=== PATIENT | male | born 1980 | race Caucasian/White ===

== ENCOUNTER 2016-07-18 09:57 | Emergency (ER) | payer SELFPAY ==
[~2016-07-18] VITALS: Ht 170.2 cm; Wt 102.5 kg
[~2016-07-18 09:57] MED LIST: ACET500T98; DOCU-144 PO; HYDR25SU24 PR
[2016-07-18 10:09] VITALS: Ht 170.2 cm; Wt 102.5 kg
[2016-07-18] MEDS ORDERED: KETOROLAC 30 MG INJ IV STA (11:21)
[2016-07-18] MEDS ORDERED: DIPHENHYDRAMINE 50 MG INJ IV STA (11:21)
[2016-07-18] MEDS ORDERED: PROCHLORPERAZINE 10 MG INJ IV STA (11:21)
[2016-07-18] MEDS ORDERED: SOD CHLORIDE 0.9% 1,000 ML IV STA (11:21)
[2016-07-18] MEDS ORDERED: ASPI1TAB30 PO (12:09)
--- NOTE | 2016-07-18 12:17 | ERD ---
ER Documentation Chief Complaint Date/Time DATE: 07/18/16 TIME: 12:14 Chief Complaint ANAND AND RIGHT EYE PAIN X 1.5 WKS HPI Patient is a 35-year-old male who presents with right-sided headache behind his eye that he has had for over 1-1/2 weeks. Denies any trauma. Admits to mild blurry vision occasionally in the eye. He thinks it may be stress related as he recently lost a family member about 2 weeks ago. Denies any nausea or vomiting. He does state he has photosensitivity. He does not wear any glasses or contacts. He denies any dizziness. Denies trauma. Has not taken any medications for pain. ROS All systems reviewed and are negative except as per history of present illness. Medications Home Meds Active Scripts Aspirin/Acetaminophen/Caffeine (Excedrin Migraine Caplet) 1 Each Tablet, 1 EACH PO Q6, #30 TAB Prov:KATHRYN RODRIGUEZ PA-C 07/18/16 Docusate Sodium* (Colace*) 100 Mg Capsule, 100 MG PO BID, #60 Prov:ALONA WEST NP 02/21/15 Hydrocortisone Acetate* (Anusol-HC*) 25 Mg/Supp.rect Supp.rect, 1 SUPP OK HS, # 24 SUPP.RECT Prov:ALONA WEST NP 02/21/15 Reported Medications Acetaminophen (Tylenol) 500 Mg Tab 05/17/10 Allergies Allergies: Coded Allergies: No Known Drug Allergies (Verified Allergy, Mild, 02/21/15) PMhx/Soc Medical and Surgical Hx: pt denies Medical Hx, pt denies Surgical Hx History of Surgery: No Anesthesia Reaction: No Hx Neurological Disorder: No Hx Respiratory Disorders: No Hx Cardiac Disorders: No Hx Psychiatric Problems: No Hx Miscellaneous Medical Probl: No Hx Alcohol Use: No Hx Substance Use: No Hx Tobacco Use: No FmHx Family History: No diabetes Physical Exam Vitals Vital Signs Date Time Temp Pulse Resp B/P Pulse Ox O2 Delivery O2 Flow Rate FiO2 07/18/16 10:09 97.9 88 20 155/96 98 Physical Exam General: well developed, well nourished, alert, nontoxic, no distress Head: normocephalic, atraumatic Eyes: PERRL, normal conjunctiva Neck: Supple, nontender, no lymphadenopathy, no midline tenderness Respiratory: Clear to auscaultation bilaterally, speaks in full sentences, no use of accesory muscles or labored breathing, no rales, ronchi, or wheezing Cardiovascular: RRR, No murmurs GI: soft, non tender, non distended, negative murphys sign, negative mcburneys point tenderness, no cva tenderness bilaterally, no rebound or guarding Back: no midline tenderness, no step offs or bony abnormalities, sensation to light touch in tact Extremities: moving all extremities normally, normal gait, no edema Skin: no visible rashes Neuro: CN 2-12 intact, normal speech, pearl maker strength 5/5 bilaterally, rapid alternating movements wnl, romberg and pronator drift wnl Results 24 hrs Current Medications Medications (Trade) Dose Ordered Sig/Sesar Route PRN Reason Start Time Stop Time Status Last Admin Dose Admin Sodium Chloride (NS) 1,000 ml @ 1,000 mls/hr Q1H STAT IV 07/18/16 11:21 07/18/16 12:20 07/18/16 11:54 Prochlorperazine (Compazine Inj) 10 mg ONCE STAT IV 07/18/16 11:21 07/18/16 11:23 DC 07/18/16 11:54 Ketorolac Tromethamine (Toradol) 30 mg ONCE STAT IV 07/18/16 11:21 07/18/16 11:23 DC 07/18/16 11:55 Diphenhydramine HCl (Benadryl) 12.5 mg ONCE STAT IV 07/18/16 11:21 07/18/16 11:23 DC 07/18/16 11:55 Procedures/MDM Patient presents with headache. He is well-appearing in no distress. Mildly elevated blood pressure 155/96 otherwise vital signs are normal. Neurological examination is normal. He was given IV fluids and pain medication. He had improvement of his symptoms. He originally accepted CT scan but that he decided not to get CT scan and therefore he was discharged. He understands risks of not getting CT scan. Recommended this patient follow up with her primary care doctor within 48 hours or return to the emergency room for any worsening of symptoms. However this time I do believe there is suitable for outpatient management. I answered all their questions and they agreed with the plan and were discharged home. Departure Diagnosis: Primary Impression: Headache Condition: Stable Patient Instructions: Self-Care for Headaches Additional Instructions: Llame al doctor MAANA y juana bebeto NICHOLAS PARA DENTRO DE 1-2 DOLAN.Dgale a la secretaria que nosotros le instruimos hacer esta nicholas.Avise o llame si ontiveros condicin se empeora antes de la nicholas. Regresa aqui si peor o no mejor. KATHRYN RODRIGUEZ PA-C Jul 18, 2016 12:17
== END 2016-07-18 13:07 | disposition home or self-care (01) ==
LOC: FTE 09:57
DX: R51 Headache (principal)
CPT/HCPCS: J0780; J1200; J1885; J7030; 96374; 96375

== ENCOUNTER 2018-06-16 15:21 | Emergency (ER) | payer MEDICAID, OTHER ==
[~2018-06-16] VITALS: Wt 118.1 kg
[~2018-06-16 15:21] MED LIST changes: +ASPI1TAB31 PO
[2018-06-16] MEDS ORDERED: ASPIRIN 325 MG TAB PO ONE (16:00)
[2018-06-16] MEDS ORDERED: ASPIRIN 81 MG TAB PO ONE (16:00)
--- NOTE | 2018-06-16 16:43 | ERD ---
ER Documentation Chief Complaint Chief Complaint SUDDEN ONSET L SIDE NUMBNESS AT 1300, AND APHASIA PER PT. ANAND WELL ROS All systems reviewed and are negative except as per history of present illness. Medications Home Meds Discontinued Reported Medications Acetaminophen (Tylenol) 500 Mg Tab 05/17/10 Discontinued Scripts Aspirin/Acetaminophen/Caffeine (Excedrin Migraine Caplet) 1 Each Tablet, 1 EACH PO Q6, #30 TAB Prov:KATHRYN RODRIGUEZ PA-C 07/18/16 Docusate Sodium* (Colace*) 100 Mg Capsule, 100 MG PO BID, #60 Prov:ALONA WEST NP 02/21/15 Hydrocortisone Acetate* (Anusol-HC*) 25 Mg/Supp.rect Supp.rect, 1 SUPP [place] HS, #24 SUPP.RECT Prov:ALONA WEST NP 02/21/15 Allergies Allergies: Coded Allergies: No Known Drug Allergies (Verified Allergy, Mild, 06/16/18) PMhx/Soc Medical and Surgical Hx: pt denies Medical Hx, pt denies Surgical Hx History of Surgery: No Anesthesia Reaction: No Hx Neurological Disorder: No Hx Respiratory Disorders: No Hx Cardiac Disorders: No Hx Psychiatric Problems: No Hx Miscellaneous Medical Probl: No Hx Alcohol Use: No Hx Substance Use: No Hx Tobacco Use: No Smoking Status: Never smoker Physical Exam Vitals Vital Signs Date Temp Pulse Resp B/P (MAP) Pulse Ox O2 O2 Flow FiO2 Time Delivery Rate 06/16/18 98.6 98 18 139/85 99 15:25 (103) Physical Exam Const: No acute distress Head: Atraumatic Eyes: Normal Conjunctiva ENT: Normal External Ears, Nose and Mouth. Neck: Full range of motion. No meningismus. Resp: Clear to auscultation bilaterally Cardio: Regular rate and rhythm, no murmurs Abd: Soft, non tender, non distended. Normal bowel sounds Skin: No petechiae or rashes Back: No midline or flank tenderness Ext: No cyanosis, or edema Neur: Awake and alert Psych: Normal Mood and Affect Result Diagram: 06/16/18 1530 06/16/18 1530 Results 24 hrs Laboratory Tests Test 06/16/18 15:30 06/16/18 15:47 White Blood Count 10.0 10^3/ul Red Blood Count 5.46 10^6/ul Hemoglobin 16.7 g/dl Hematocrit 49.4 % Mean Corpuscular Volume 90.5 fl Mean Corpuscular Hemoglobin 30.6 pg Mean Corpuscular Hemoglobin Concent 33.8 g/dl Red Cell Distribution Width 11.9 % Platelet Count 258 10^3/UL Mean Platelet Volume 10.2 fl Immature Granulocytes % 0.700 % Neutrophils % 54.2 % Lymphocytes % 35.3 % Monocytes % 7.9 % Eosinophils % 1.4 % Basophils % 0.5 % Nucleated Red Blood Cells % 0.0 /100WBC Immature Granulocytes # 0.070 10^3/ul Neutrophils # 5.4 10^3/ul Lymphocytes # 3.5 10^3/ul Monocytes # 0.8 10^3/ul Eosinophils # 0.1 10^3/ul Basophils # 0.1 10^3/ul Nucleated Red Blood Cells # 0.0 10^3/ul Prothrombin Time 11.9 Sec Prothrombin Time Ratio 0.9 INR International Normalized Ratio 0.87 Activated Partial Thromboplast Time 29.4 Sec Sodium Level 141 mmol/L Potassium Level 3.6 mmol/L Chloride Level 104 mmol/L Carbon Dioxide Level 24 mmol/L Anion Gap 13 Blood Urea Nitrogen 16 mg/dl Creatinine 0.96 mg/dl Est Glomerular Filtrat Rate mL/min > 60 mL/min Glucose Level 114 mg/dl Hemoglobin A1c 5.5 % Calcium Level 9.6 mg/dl Creatine Kinase 165 IU/L Creatine Kinase Index 1.1 Creatinine Kinase MB (Mass) 1.79 ng/ml Troponin I < 0.012 ng/ml Triglycerides Level 163 mg/dl Cholesterol Level 199 mg/dl LDL Cholesterol, Calculated 117 mg/dl HDL Cholesterol 49 mg/dl Cholesterol/HDL Ratio 4.0 RATIO Ethyl Alcohol Level < 10.0 mg/dl Bedside Glucose 111 mg/dL Current Medications Medications Dose Sig/Sesar Start Time Status Last (Trade) Ordered Route PRN Stop Time Admin Dose Reason Admin Aspirin 325 mg ONCE ONCE 06/16/18 DC (Aspirin) PO 16:00 06/16/18 16:00 Aspirin 162 mg ONCE ONCE 06/16/18 DC 06/16/18 (Aspirin) PO 16:00 15:59 06/16/18 16:01 Procedures/MDM EKG read by me: Rate/Rhythm: Regular rate and rhythm at a rate of 97 Intervals: Normal Impression: No evidence of ischemia or arrhythmia CT brain read by radiology shows no bleed. Chest x-ray read by radiology. Patient is a 37-year-old male with no medical problems who presents with slurred speech and numbness. The timeline is as follows: Code stroke called at 1533 [address] directly to [address] scan at 1533 Call to tell neurology was at 1536 Radiology called and said there was no bleed in the brain at 1544 There was a delay until neurology called back and I received a call from Dr. Ornelas at 1612 Dr. Ornelas performed his evaluation and call back at 1636 and we decided no TPA given resolution of symptoms and likely no stroke. Patient is a 37-year-old male presents with what appears to be an acute TIA. There is resolution of symptoms and I doubt large vessel occlusion. I believe the risk of doing a CTA outweigh the benefits. The patient will be discharged with instructions to return if worse. Patient was to follow-up the local clinics within 24-48 hours for reevaluation. The patient can return for any worsening symptoms. ABCD squared score was 2 placing the patient in low risk category for stroke. ABCD Score for TIA from [email or web address] on 06/16/2018 All calculations should be rechecked by clinician prior to use RESULT SUMMARY: 2 points Per the validation study, 0-3 points: Low Risk 2-Day Stroke Risk: 1.0% 7-Day Stroke Risk: 1.2% 90-Day Stroke Risk: 3.1% INPUTS: Age ? 60 years > 0 = No BP ? 140/90 mmHg > 0 = No Clinical features of the TIA > 1 = Speech disturbance without weakness Duration of symptoms > 1 = 10-59 minutes History of diabetes > 0 = No Critical Care: Time: 35 minutes excluding all billable procedures. Treatments/Evaluations: Close monitoring and treatment of unstable vital signs, cardiorespiratory, and neurologic status, while maintaining tight balance of fluid, respiratory, and cardiac interventions. Departure Diagnosis: Primary Impression: TIA (transient ischemic attack) Condition: Fair Patient Instructions: Transient Ischemic Attack (TIA) Referrals: COMM[facility]ITY CLINICS YOU HAVE RECEIVED A MEDICAL SCREENING EXAM AND THE RESULTS INDICATE THAT YOU DO NOT HAVE A CONDITION THAT REQUIRES URGENT TREATMENT IN THE EMERGENCY DEPARTMENT. FURTHER EVALUATION AND TREATMENT OF YOUR CONDITION CAN WAIT UNTIL YOU ARE SEEN IN YOUR DOCTORS OFFICE WITHIN THE NEXT 1-2 DAYS. IT IS YOUR RESPONSIBILITY TO MAKE AN APPOINTMENT FOR FOLOW-UP CARE. IF YOU HAVE A PRIMARY DOCTOR --you should call your primary doctor and schedule an appointment IF YOU DO NOT HAVE A PRIMARY DOCTOR YOU CAN CALL OUR PHYSICIAN REFERRAL HOTLINE AT IF YOU CAN NOT AFFORD TO SEE A PHYSICIAN YOU CAN CHOSE FROM THE FOLLOWING FORMERLY [facility], [facility] [address] [facility] [address] [facility] [facility] [address] [facility] [address] [facility] [address] [facility] [facility]. [address] Additional Instructions: Call your primary care doctor TOMORROW for an appointment during the next 1-2 days.See the doctor sooner or return here if your condition worsens before your appointment time. YOSEPH ZAVALA MD Jun 16, 2018 16:43
[2018-06-16 17:00] VITALS: BP 101/70; PULSE 100; RESP 18
== END 2018-06-16 17:03 | disposition home or self-care (01) ==
LOC: E/R 15:21
DX: G45.9 Transient cerebral ischemic attack, unspecified (principal); R40.2142 Coma scale, eyes open, spontaneous, at arrival to emergency department; R40.2252 Coma scale, best verbal response, oriented, at arrival to emergency department; R40.2362 Coma scale, best motor response, obeys commands, at arrival to emergency department; R07.9 Chest pain, unspecified
CPT/HCPCS: 36415; 70450; 71045; 80048; 80061; 80307; 82550; 82553; 82962; 83036; 84484; 85025; 85610; 85730; 93005; Z7502; Z7610